=== PATIENT | female | born 1985 | race Caucasian/White ===

== ENCOUNTER 2018-11-07 06:40 | Emergency (ER) | payer BC ==
[2018-11-07] MEDS ORDERED: HYDROmorphone 1 MG/ML Syringe IVPUSH ONE ×2 (07:05→07:45)
[2018-11-07] MEDS ORDERED: Ondansetron 4 MG/2 ML SDV IVPUSH ONE (07:05)
--- NOTE | 2018-11-07 07:08 | EDM.PDOC ---
ED HPI GENERAL MEDICAL PROBLEM - General Chief Complaint: Abdominal Pain Stated Complaint: ABDOMINAL PAIN Time Seen by Provider: 11/07/18 07:00 Source of Information: Reports: Patient History Limitations: Reports: No Limitations - History of Present Illness INITIAL COMMENTS - FREE TEXT/NARRATIVE: Anything. Even drinking seems to make the pain worse. She is 11 days and this pain has been present for the most part since delivery. Baby was born vaginally and she has done well. Only previous abdominal surgeries that of gastric sleeve procedure performed 3 years ago. She feels a pain pill mostly epigastrium and left upper quadrant of the abdomen. Does not radiate into her back. Associated with mild nausea with no vomiting. 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 He is trying to breast-feed but doesn't feel she's getting adequate fluid intake to provide breast milk. No associated fever or chills. She is concerned that it may be her gallbladder. Onset: Gradual Onset Date: 10/28/18 Duration: Day(s):, Getting Worse Location: Reports: Abdomen (Left upper quadrant epigastric abdominal pain made worse by eating 11 days.) Quality: Reports: Ache, Other Severity: Moderate (Describes the pain as constant but does intermittently get much worse by any colicky component 7 dated at 10.) Improves with: Reports: None Worsens with: Reports: Eating Context: Denies: Activity (Or drinking.), Exercise, Lifting, Sick Contact, Trauma, Other Associated Symptoms: Reports: Loss of Appetite, Nausea/Vomiting (Nausea without vomiting). 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 [employer]: Reports: Acetaminophen Upper Abdomen Pain Score (Numeric/FACES): 2 - Related Data Allergies Allergy/AdvReac Type Severity Reaction Status Date / Time NSAIDS (Non-Steroidal Allergy Cannot Verified 11/07/18 06:49 Anti-Inflamma Remember venlafaxine [From Effexor] Allergy Rash Verified 11/07/18 06:57 Home Meds: Home Meds Acetaminophen [Tylenol] 650 mg PO Q4H PRN 11/07/18 [History] B12/Levomefolate Calcium/B-6 [Folbic Rf Tablet] 2,500 mcg PO BID 11/07/18 [ History] Calcium Carb & Citrate/Vit D3 [Calcium + D3 ER Tablet] 400 mg PO DAILY 11/07/18 [History] Dicyclomine [Bentyl] 20 mg PO Q6H PRN #15 tablet 11/07/18 [Rx] Docusate Sodium [Stool Softener] 100 mg PO DAILY PRN 11/07/18 [History] FA/Lycopene/Lut/MV,Ca,Iron,Min [Centrum] 1 tab PO DAILY 11/07/18 [History] Guar Gum [Benefiber] 1 pack PO DAILY 11/07/18 [History] Levonorgestrel-Ethin Estradiol [Falmina-28 Tablet] 1 tab PO DAILY 11/07/18 [ History] Melatonin 10 mg PO DAILY 11/07/18 [History] Multivitamin with Minerals [Hair, Skin and Nails] 1 tab PO DAILY 11/07/18 [ History] Omeprazole Magnesium [Prilosec Otc] 20 mg PO ASDIRECTED #42 tablet. 11/07/18 [ Rx] Ondansetron [Zofran ODT] 4 mg PO Q4H PRN 11/07/18 [History] Pantoprazole Sodium [Protonix] 40 mg PO DAILY 11/07/18 [History] Sertraline [Zoloft] 75 mg PO DAILY 11/07/18 [History] busPIRone [Buspar] 30 mg PO BID 11/07/18 [History] traZODone HCl [Trazodone HCl] 100 mg PO DAILY 11/07/18 [History] Past Medical History : 6 Para: 3 (one ectopic with losss of Rt fallopian tube. No D&C`c. ) - Past Surgical History HEENT Surgical History: Reports: Oral Surgery (Removal of wisdom teeth.) GI Surgical History: Reports: Other (See Below) (Gastric sleeve procedure performed in January 2017.Performed by Dr Vidal at [facility] Female Surgical History: Reports: Other (See Below) (Right) Social & Family History - Living Situation & Occupation Living situation: Reports: Occupation: Unemployed ED ROS GENERAL - Review of Systems Review Of Systems: See Below Constitutional: Reports: Malaise, Weakness, Fatigue, Decreased Appetite. Denies : Fever, Chills HEENT: Reports: No Symptoms Respiratory: Reports: No Symptoms Cardiovascular: Reports: No Symptoms Endocrine: Reports: Fatigue GI/Abdominal: Reports: Abdominal Pain, Diarrhea (Mustard-like stools the last day or so.), Nausea. Denies: Anorexia, Black Stool, Bloody Stool, Decreased Appetite, Difficulty Swallowing, Hematemesis, Hematochezia, Stool Incontinence : Reports: No Symptoms Musculoskeletal: Reports: No Symptoms Skin: Reports: No Symptoms Neurological: Reports: No Symptoms ED EXAM, GI/ABD - Physical Exam Exam: See Below Exam Limited By: No Limitations General Appearance: Alert, WD/WN, Mild Distress (Tearful.) Eyes: Bilateral: Normal Appearance (No scleral icterus.) Throat/Mouth: Normal Inspection, Normal Lips, Normal Oropharynx, Normal Voice ( Is mildly dry and coated), Other Head: Atraumatic, Normocephalic Neck: Normal Inspection, Supple, Non-Tender, Full Range of Motion. No: Lymphadenopathy (L), Lymphadenopathy (R) Respiratory/Chest: No Respiratory Distress, Lungs Clear, Normal Breath Sounds, No Accessory Muscle Use Cardiovascular: Normal Peripheral Pulses, Regular Rate, Rhythm, No Edema, No Gallop, No Murmur, No Rub GI/Abdominal Exam: Normal Bowel Sounds, Soft, No Organomegaly, No Distention, No Abnormal Bruit, No Mass, Pelvis Stable, Tender (Tenderness is mostly in the epigastrium. There is no sign of gallbladder related illness negative Tapia sign) Back Exam: Normal Inspection, Full Range of Motion. No: CVA Tenderness (L), CVA Tenderness (R) Extremities: Normal Inspection, Normal Range of Motion, Non-Tender, No Pedal Edema Neurological: Alert, Oriented, CN II-XII Intact, Normal Cognition, Normal Gait Psychiatric: Tearful Skin Exam: Warm, Dry, Intact, Normal Color, No Rash Course - Vital Signs Last Recorded V/S: Last Vital Signs Temp 36.5 C 11/07/18 06:45 Pulse 97 11/07/18 06:45 Resp 16 11/07/18 06:45 BP 123/85 11/07/18 06:45 Pulse Ox 98 11/07/18 06:45 - Orders/Labs/Meds Orders: Active Orders 24 hr Category Date Time Status Abdomen 1V Flat [CR] Stat Exams 11/07/18 07:06 Taken Abdomen wo Cont [CT] Stat Exams 11/07/18 07:45 Taken CULTURE URINE [RM] Stat Lab 11/07/18 11:47 Ordered Labs: Laboratory Tests 11/07/18 11/07/18 11/07/18 Range/Units 07:20 07:20 09:10 WBC 9.07 (3.98-10.04) K/mm3 RBC 4.98 (3.98-5.22) M/mm3 Hgb 14.1 (11.2-15.7) gm/L Hct 42.1 (34.1-44.9) % MCV 84.5 (79.4-94.8) fl MCH 28.3 (25.6-32.2) pg MCHC 33.5 (32.2-35.5) g/dl RDW Std Deviation 42.0 (36.4-46.3) fL Plt Count 279 (182-369) K/mm3 MPV 9.5 (9.4-12.3) fl Neutrophils % (Manual) 78 H (40-60) % Band Neutrophils % 1 (0-10) % Lymphocytes % (Manual) 14 L (20-40) % Atypical Lymphs % 0 % Monocytes % (Manual) 5 (2-10) % Eosinophils % (Manual) 2 (0.7-5.8) % Basophils % (Manual) 0 L (0.1-1.2) Platelet Estimate Adequate RBC Morph Comment Normal Sodium 142 (136-145) mEq/L Potassium 4.1 (3.5-5.1) mEq/L Chloride 109 H (98-107) mEq/L Carbon Dioxide 21 (21-32) mEq/L Anion Gap 16.1 H (5-15) BUN 13 (7-18) mg/dL Creatinine 0.8 (0.55-1.02) mg/dL Est Cr Clr Drug Dosing 90.84 mL/min Estimated GFR (MDRD) > 60 (>60) mL/min BUN/Creatinine Ratio 16.3 (14-18) Glucose 84 (74-106) mg/dL Calcium 8.4 L (8.5-10.1) mg/dL Total Bilirubin 0.4 (0.2-1.0) mg/dL AST 16 (15-37) U/L ALT 26 (14-59) U/L Alkaline Phosphatase 102 (46-116) U/L C-Reactive Protein 0.5 (<1.0) mg/dL Total Protein 7.2 (6.4-8.2) g/dl Albumin 3.1 L (3.4-5.0) g/dl Globulin 4.1 gm/dL Albumin/Globulin Ratio 0.8 L (1-2) Lipase 85 (73-393) U/L Urine Color Yellow (Yellow) Urine Appearance Clear (Clear) Urine pH 6.5 (5.0-8.0) Ur Specific [place] 1.010 (1.005-1.030) Urine Protein Negative (Negative) Urine Glucose (UA) Negative (Negative) Urine Ketones Negative (Negative) Urine Occult Blood 2+ H (Negative) Urine Nitrite Negative (Negative) Urine Bilirubin Negative (Negative) Urine Urobilinogen 0.2 (0.2-1.0) Ur Leukocyte Esterase Trace H (Negative) Urine RBC 10-20 H (0-5) /hpf Urine WBC 5-10 H (0-5) /hpf Ur Epithelial Cells 0-5 (0-5) /hpf Urine Bacteria Few (FEW) /hpf Urine Mucus Rare H (FEW) /hpf Meds: Medications Discontinued Medications Generic Name Dose Route Start Last Admin Trade Name Freq PRN Reason Stop Dose Admin Diatrizoate Meglum/Diatrizoate Sod 45 ml 11/07/18 08:25 11/07/18 08:25 Gastrografin 37% PO 11/07/18 08:26 45 ml ONETIME ONE Administration Hydromorphone HCl 0.5 mg 11/07/18 07:05 11/07/18 08:02 Dilaudid IVPUSH 11/07/18 07:06 0.5 mg ONETIME ONE Administration Hydromorphone HCl 0.5 mg 11/07/18 07:45 11/07/18 09:32 Dilaudid IVPUSH 11/07/18 07:46 0.5 mg ONETIME ONE Administration Dextrose/Sodium Chloride 1,000 mls @ 999 mls/hr 11/07/18 07:15 11/07/18 07:26 Dextrose 5%-Normal Saline IV 999 mls/hr ASDIRECTED JOHAN Administration Ondansetron HCl 4 mg 11/07/18 07:05 11/07/18 07:26 Zofran IVPUSH 11/07/18 07:06 4 mg ONETIME ONE Administration - Radiology Interpretation Free Text/Narrative:: 33-year-old female presents the ED for evaluation of recurrent epigastric left upper quadrant abdominal pain every time she eats the last 11-12 days. She is 12 days . Had a normal vaginal delivery of a female 12 days ago. She is trying to breast-feed but finds that her fluid intake is inadequate to allow adequate breast-feeding. After she eats she tries to drink she gets severe epigastric upper abdominal pain that radiates along both costal margins. No pain into her back. Of note the patient had a gastric sleeve procedure performed about 3 years ago. Pain is worsened by eating. Stools became yellow mustardy like yesterday suggesting starvation stools. No blood per rectum. No previous other abdominal surgery. Exam reveals tenderness in the epigastrium and left upper quadrant without rebound tenderness or guarding. Suspect a problem with the gastric sleeve. Plan IV D5 normal saline at open. Routine labs to be collected including a serum lipase and a CRP. Review of the abdomen will be obtained. Will likely need CT of the abdomen as well. - Re-Assessments/Exams Free Text/Narrative Re-Assessment/Exam: 11/07/18 07:39 x-ray of the abdomen shows several dilated loops of small bowel mid abdomen with slightly thickening avila. There is no true obstruction. Bowel gas pattern is otherwise normal. 11/07/18 07:49 pain transiently improved with 0.5 mg of Dilaudid. I will repeat the same dose. Labs are back yet but the x-ray is essentially untoward. Going to have the limited CT of the abdomen performed with oral contrast so that I can look at the stomach and the gastric sleeve as clinically this is the source of the problem. Patient so advised. 11/07/18 08:13 Labs reveal a normal white count at 9.07 with 70% neutrophils 1% band cells reported. Hemoglobin is 14.1 with hematocrit of 42.1. Platelet count is 279,000. Sodium 142 with potassium of 4.1. Chloride is 109 with a bicarbonate of 21. Anion gap 16.1. BUN is 13 with a creatinine of 0.8. GFR is greater than 60. Glucose is 84 calcium 8.4. Liver function is normal. C- reactive protein is 0.5 total protein 7.2 albumin fraction is low at 3.1. Lipase is normal at 85. 11/07/18 09:19 CT report available on the abdomen. Sludge or gallstones within the gallbladder. There is posterior be some inflammatory changes around the head of the pancreas which may represent mild pancreatitis however her lipase is normal. Spleen shows normality. Adrenal glands are normal. Kidneys show no abdomen maladies. Sutures are appreciated along the stomach proper with her gastric sleeve. Contrast in the stomach and duodenum and jejunum. A few loops of mildly dilated small bowel with air-fluid levels may represent early obstruction or an ileus upper abdomen. I put a call into Dr. Doe internet application developer surgeon at [facility] but she is currently in the or. She will be calling me back in between cases. 11/07/18 09:27 I discussed the findings of the CT scan with the patient. She appears to be quite uncomfortable and writhing in the bed but she was reluctant to take any further pain medication. She's only had 0.5 mg of Dilaudid thus far. Awaiting phone call back from surgeon in [place]. 11/07/18 10:19 still unfortunately have not heard back from Dr. Doe in [place]. Therefore going to let the patient go home as she is worried about her 3 children home and her along with the children which she is not used to looking after. She will not eat or drink anything until we have further contact by phone. She needs medication phone and I can do this later. 11/07/18 11:[address] Cutler from [place]. She had look at the CT scan and the previous CT scan for comparison purposes and did not feel that there was any change in the position of the gastric sleeve. Therefore the cause of her problem and feeling like she cannot eat due to early satiety and pain may be due to ulcer formation in the stomach itself. Therefore going to advise conservative treatment with Bentyl 20 mg every 6 hours as necessary to relieve pain. She will use Prilosec 20 mg a.m. and p.m. for the next week and then once daily at bedtime only. See how things go over the next 3-5 days. If not markedly improved in 5 days time vascular contact --in [place] who performed her gastric sleeve procedure for possible upper GI endoscopy to make sure there is no obstruction or ulceration in the gastric remnant. Departure - Departure Time of Disposition: 11:56 Disposition: Home, Self-Care 01 Condition: Fair Clinical Impression: Upper abdominal pain - Discharge Information *PRESCRIPTION DRUG MONITORING PROGRAM REVIEWED*: Not Applicable *COPY OF PRESCRIPTION DRUG MONITORING REPORT IN PATIENT [place]: Not Applicable Prescriptions: Dicyclomine [Bentyl] 20 mg PO Q6H PRN #15 tablet PRN Reason: Abdominal cramps/diarrhea Omeprazole Magnesium [Prilosec Otc] 20 mg PO ASDIRECTED #42 tablet. Instructions: Abdominal Pain, Adult, [id number] Referrals: Suzan Wilde MARINE ELECTRONICS TECHNICIAN [Primary Care Provider] - Forms: ED Department Discharge Additional Instructions: Evaluation the emergency room today in regards to persistent upper abdominal pain aggravated by eating and/or drinking fluids. I strongly believe this is related to thrombus from your gastric sleeve having moved and is in a malposition. As we discussed the CT does show me a few dilated loops of small bowel compatible with an ileus type pattern due to pain from the stomach. There is a chance that you need to have the gastric sleeve surgically removed back into position or removed totally. I have a phone call into a surgeon in [place] but she has not called me back yet as she is in the operating room. As we discussed home but doesn't eat or drink until I contact you by phone with a decision and a plan for treatment. - My Orders Last 24 Hours: My Active Orders 11/07/18 07:06 Abdomen 1V Flat [CR] Stat 11/07/18 07:45 Abdomen wo Cont [CT] Stat 11/07/18 11:47 CULTURE URINE [RM] Stat - Assessment/Plan Last 24 Hours: My Active Orders 11/07/18 07:06 Abdomen 1V Flat [CR] Stat 11/07/18 07:45 Abdomen wo Cont [CT] Stat 11/07/18 11:47 CULTURE URINE [RM] Stat
[2018-11-07] MEDS ORDERED: Dextrose 5%-0.9% NaCl 1,000 ML IV SCH (07:15)
[2018-11-07] MEDS ORDERED: Diatrizoate Meglumine/Diatrizoate Sodium 37% 120 ML Bottle PO ONE (08:25)
--- NOTE | 2018-11-07 15:25 | CR ---
Abdomen: Supine view of the abdomen was obtained. Comparison: No previous study. Bowel gas pattern is normal. Surgical anastomotic sutures are seen within the upper abdomen. No abnormal calcifications or soft tissue abnormality is seen. Impression: 1. Incidental surgery. Nothing acute is seen. Diagnostic code #2
--- NOTE | 2018-11-09 07:14 | CT ---
CT abdomen Technique: Multiple axial sections were obtained from above the dome of the diaphragm inferiorly to the iliac crest. Intravenous contrast not utilized. Small amount of oral contrast is noted. Comparison: Previous abdominal x-ray performed earlier on the same day (7:24 AM) . Findings: Small portion of the visualized lung bases are clear. Noncontrast appearance of the liver and spleen appears within normal limits. Hazy increased density is noted within the gallbladder. Sludge or gallstones is a possibility. Ultrasound would be needed to confirm. Adrenal glands show no nodule. Visualized pancreas is within normal limits. Equivocal inflammatory change around a small portion of the pancreatic head. Kidneys show no abnormal calcifications or hydronephrosis. Aorta shows no aneurysm. No retroperitoneal adenopathy or mesenteric abnormalities are seen. Previous gastric surgery is noted. Appendix not visualized. Several loops of small bowel slightly prominent in size most likely incidental and due to hypertonic effect of contrast. Bone window settings were reviewed which appear within normal limits for the patient's age. Impression: 1. Equivocal inflammatory change around the head of the pancreas. I believe that this is incidental unless patient has correlating clinical symptoms. 2. Haziness within the gallbladder possibly due to sludge or gallstones. Ultrasound would be needed to confirm if clinically indicated. 3. No additional abnormality is appreciated on noncontrast CT study of the abdomen. Diagnostic code #3 MTDD
== END 2018-11-07 10:30 | disposition home or self-care (01) ==
LOC: JD.ED 06:40
DX: O99.89 Other specified diseases and conditions complicating pregnancy, childbirth and the puerperium (principal); R10.10 Upper abdominal pain, unspecified; Z88.8 Allergy status to other drugs, medicaments and biological substances; Z79.899 Other long term (current) drug therapy
CPT/HCPCS: 36415; 74018; 74150; 80053; 81001; 83690; 85007; 85027; 86140; 87086; 96361; 96374; 96375; 96376; 99284; J1170; J2405; J7042; Q9963